=== PATIENT | female | born 1965 | race Caucasian/White ===

== ENCOUNTER 2025-02-10 06:43 | Observation (INO) ==
--- NOTE | 2025-01-14 11:12 | PAT Medication Instructions ---
Medication Instructions Date of Service January 14, 2025 Home Medications Medication Instructions Recorded diclofenac sodium 75 mg 75 mg PO BID PRN pain #60 tabs 12/16/24 tablet,delayed release Medication List: diclofenac sodium 75 mg tablet,delayed release 75 mg PO BID PRN pain famotidine 20 mg tablet 20 mg PO DAILY fexofenadine 180 mg tablet (Xuan Allergy) 180 mg PO DAILY PRN allergies fluvoxamine 150 mg capsule,extended release 24 hr 150 mg PO DAILY levothyroxine 50 mcg tablet 50 mcg PO QAM lifitegrast 5 % eye drops in a dropperette (Xiidra) 1 drp ophthalmic (eye) Q12H PRN Dry Eyes MEDICATION INSTRUCTIONS: Continue as directed lifitegrast 5 % eye drops in a dropperette (Xiidra) 1 drp ophthalmic (eye) Q12H PRN Dry Eyes ASK your surgeon for instructions diclofenac sodium 75 mg tablet,delayed release 75 mg PO BID PRN pain DO NOT take the morning of surgery fexofenadine 180 mg tablet (Xuan Allergy) 180 mg PO DAILY PRN allergies Take morning of surgery With a small sip of water, OTHERWISE NOTHING TO EAT OR DRINK AFTER MIDNIGHT: fluvoxamine 150 mg capsule,extended release 24 hr 150 mg PO DAILY famotidine 20 mg tablet 20 mg PO DAILY levothyroxine 50 mcg tablet 50 mcg PO QAM Other Notes If you have any questions please call us at [phone] or [phone] or [phone] or [phone]
--- NOTE | 2025-01-21 09:03 | Anesthesiology Consultation ---
Date of Service January 21, 2025 Assessment & Plan (1) Encounter for pre-operative examination: Outpatient joint assessment: Patient is currently scheduled for inpatient pathway. If re-evaluated and patient/surgeon requests outpatient pathway, patient is acceptable candidate for outpatient joint program from anesthesia standpoint pending surgeon's office assessment of pt motivation/support/completion of same day joint program preop requirements. Chart Review Chart Review: Acceptable Risk for Surgery and Patient seen in Pre Admission Testing Teaching & Discussion Pre-Anesthesia Teaching/Discussion Notes: Instructed NPO after midnight before surgery, except medications with 15 cc of water. Medication instructions provided according to the PAT guidelines. History Surgery Operation Date: 02/10/25 10:40 Proposed Procedures p Right Total Knee Arthroplasty - Yonathan Castrejon MD Height/Weight Height: 5 ft 7.5 in Weight: 119.2 kg Allergies Allergy/AdvReac Type Severity Reaction Status Date / Time hydrochlorothiazide Allergy Intermediate edema Verified 01/21/25 13:32 triamterene Allergy Intermediate edema Verified 01/21/25 13:32 latex Allergy Mild Skin Verified 01/13/25 10:53 irritation pollen extracts Allergy Mild Verified 01/13/25 10:53 Dust Allergy Mild Uncoded 01/13/25 10:53 Medications Home Medications Medication Instructions Recorded Confirmed Last Taken diclofenac sodium 75 mg 75 mg PO BID PRN pain #60 tabs 12/16/24 01/13/25 Unknown tablet,delayed release famotidine 20 mg tablet 20 mg PO DAILY 01/13/25 01/13/25 Unknown fexofenadine 180 mg tablet 180 mg PO DAILY PRN allergies 01/13/25 01/13/25 Unknown (Xuan Allergy) fluvoxamine 150 mg 150 mg PO DAILY 01/13/25 01/13/25 Unknown capsule,extended release 24 hr levothyroxine 50 mcg tablet 50 mcg PO QAM 01/13/25 01/13/25 Unknown lifitegrast 5 % eye drops in a 1 drp ophthalmic (eye) Q12H PRN 01/13/25 01/13/25 Unknown dropperette (Xiidra) Dry Eyes Past Medical History Medical History (Updated 01/21/25 @ 13:35 by Queta Groves PA-C) Anxiety Cardiac murmur no issues, denies previous echocardiogram-no murmur on last CV exam by S PCP 08/2024 GERD (gastroesophageal reflux disease) controlled, stable per pt History of postoperative nausea and vomiting denies needing scop patch Hypothyroidism OCD (obsessive compulsive disorder) Right knee DJD Seasonal allergies Venous stasis of both lower extremities Patient denies h/o stroke, seizures, heart attack, heart failure, DM, HTN, blood clots/DVTs or blood transfusions. Exercise / Class Metabolic Activity II 4-5 Yardwork/Stairs/Walk up hill (denies chest discomfort or shortness of breath with one flight of stairs) Past Surgical History Surgical History History of mandibular surgery (12/13/85) for tmj Hx of arthroscopic knee surgery x2 on left x2 on right Hx of colonoscopy Hx of hammer toe correction left Past Anesthesia History Other (patient notes no benefit with epidural in past for labor) Adopted, unknown family history. History of PONV History of PONV (denies needing scop patch) and Hx of Motion Sickness Social History Smoking Status: Never smoker Do You Dip or Chew Tobacco: No Hx Alcohol Use: Yes alcohol intake frequency: holidays/special occasions only Hx Substance Use: No substance use type: does not use Review of Systems Snoring, denies witnessed apneas. Patient denies chest pain, shortness of breath, dyspnea on exertion, fever, chills, cough, wheezing, or palpitations. Physical Exam Vital Signs Vitals BP 121/70 P 98 TEMP 98.0 SP02 98% on RA RESP 19 Physical Patient resting comfortably in chair in no acute distress, alert and oriented, responding appropriately throughout visit Full cervical extension range of motion without pain TMD 3.5 finger breadths Mallampati Score 3 Dentition: several chipped teeth, crowns and bridges; denies loose teeth, or implants Lungs: normal respiratory effort. Good air movement, clear throughout to auscultation, no adventitious breath sounds Cardiac: regular rate and rhythm, no murmurs noted Carotid arteries: negative bruit bilat Lab Results Anesthesia Preop Results Results Anesthesia Widget: WBC 6.27 K/ul (4.8-10.8) 01/21/25 Hgb 13.0 g/dl (12.0-16.0) 01/21/25 Hct 41.6 % (37.0-47.0) 01/21/25 Plt 328 K/uL (130-400) 01/21/25 Na 139 mmol/L (136-145) 01/21/25 K 4.3 mmol/L (3.5-5.1) 01/21/25 Cl 104 mmol/L (98-107) 01/21/25 CO2 31 mmol/L (21-32) 01/21/25 BUN 21 mg/dl (6-23) 01/21/25 Creat 0.84 mg/dl (0.6-1.2) 01/21/25 Glucose Level 102 mg/dl (70-99(Fasting)) H 01/21/25 PT 10.3 Seconds (9.0-12.0) 01/21/25 PTT 28 Seconds (21-31) 01/21/25 INR 0.9 (0.9-1.1) 01/21/25 Blood Type O Positive 01/21/25 Antibody Screen NEGATIVE 01/21/25 Testing Electrocardiogram Date: 08/29/24 NSR, rate 82 bpm Possible LA enlargement No significant change vs 09/25/13 EKG Chest X-Ray Date: 01/21/25 No acute cardiopulmonary findings.
--- NOTE | 2025-02-07 17:30 | History & Physical Report ---
Date of Service February 07, 2025 Assessment & Plan (1) Right knee DJD: 59-year-old female with history of knee arthroscopy in the past with advanced medial compartment arthritis of the knee likely due to avascular necrosis. She is failed conservative treatment. She like to have her knee fixed. Plan: We are going to take her to the operating room do a right knee replacement. The risks Mente this procedure explained. Informed consent was obtained. She will plan on stay in the hospital overnight and likely discharge postop day 1. Will use aspirin for DVT prophylaxis. (2) Hypothyroidism: (3) OCD (obsessive compulsive disorder): (4) GERD (gastroesophageal reflux disease): (5) Venous stasis of both lower extremities: History of Present Illness Chief Complaint: . Bilateral knee pain right side greater than left. Primary Care Provider: NO PCP . The patient is a 59-year-old female who presents for definitive treatment of her knees. She has a history of bilateral knee scopes in the past. Over the past several years she has developed increased pain discomfort in both knees the right knee quite a bit more than the left. She has been through conservative treatment. She has had steroid injections which became less successful. She had a Euflexxa injection which made things worse. Pain is mostly medial. She limps more as the day goes on. Is a global pain. She like to have her knee fixed. Once again her right knee bothers him more than the left. Allergies Allergy/AdvReac Type Severity Reaction Status Date / Time hydrochlorothiazide Allergy Intermediate edema Verified 01/21/25 13:32 triamterene Allergy Intermediate edema Verified 01/21/25 13:32 latex Allergy Mild Skin Verified 01/13/25 10:53 irritation pollen extracts Allergy Mild Verified 01/13/25 10:53 Dust Allergy Mild Uncoded 01/13/25 10:53 Home Medications Medication Instructions Recorded Confirmed Type diclofenac sodium 75 mg 75 mg PO BID PRN pain #60 tabs 12/16/24 01/13/25 Rx tablet,delayed release famotidine 20 mg tablet 20 mg PO DAILY 01/13/25 01/13/25 History fexofenadine 180 mg tablet 180 mg PO DAILY PRN allergies 01/13/25 01/13/25 History (Xuan Allergy) fluvoxamine 150 mg 150 mg PO DAILY 01/13/25 01/13/25 History capsule,extended release 24 hr levothyroxine 50 mcg tablet 50 mcg PO QAM 01/13/25 01/13/25 History lifitegrast 5 % eye drops in a 1 drp ophthalmic (eye) Q12H PRN 01/13/25 01/13/25 History dropperette (Xiidra) Dry Eyes Past Med/Surg History Problem List Encounter for pre-operative examination Right knee DJD Medical History Anxiety Cardiac murmur no issues, denies previous echocardiogram-no murmur on last CV exam by S PCP 08/2024 Venous stasis of both lower extremities GERD (gastroesophageal reflux disease) controlled, stable per pt OCD (obsessive compulsive disorder) Hypothyroidism Seasonal allergies History of postoperative nausea and vomiting denies needing scop patch Right knee DJD Surgical History Hx of colonoscopy Hx of hammer toe correction left History of mandibular surgery (12/13/85) for tmj Hx of arthroscopic knee surgery x2 on left x2 on right Social History Smoking Status: Never smoker Second Hand Exposure: No; Do You Dip or Chew Tobacco: No; Tobacco Cessation Education Requested by Patient: No Hx Alcohol Use: Yes Hx Substance Use: No Preferred Language: Cook Islander Communication Ability: Effective Landing Worker Required: No Beliefs That Will Affect Care: None Current Living Situation: Spouse Other Information That Helps Us Care for You: No Feels Safe at Home: Yes Safety Concerns: Feels Safe At This Time Assistive Devices: Denture - Lower Assistive Devices Comment: partial lower Review of Systems All systems reviewed & are unremarkable except as noted in HPI & below. Physical Exam . Physical examination reveals a pleasant middle-aged female. Looks to be in pretty good health. Examination of the right knee reveal patient ambulates which is slightly of a limp. She got moderate soft tissue envelope. She is got varus alignment to her knee. Tender medial joint line. Small knee effusion. Range of motion 0-1 25. No instability. No pain with hip motion. Constitutional WD/WN, vitals as above Neck trachea midline, no thyromegaly Respiratory normal respiratory effort, lungs clear to auscultation Cardiovascular RRR, no murmur, no edema Gastrointestinal (Abdomen) normal bowel sounds, soft, nontender, no hepatosplenomegaly Results & Data Results & Data Laboratory Results . Diagnostic Findings . X-rays of the right knee reviewed. Shows advanced medial compartment arthritis. Looks like she is got a segment of avascular necrosis of the medial femoral condyle. PG Care Time/CCT Total # of Minutes Spent Total Time Spent with Patient: Total time spent is greater than 50% in coordination of care (as documented) at patient's floor/unit and/or counseling patient: Coding Level of Care Code None Diagnoses Right knee DJD M17.11 Hypothyroidism E03.9 OCD (obsessive compulsive disorder) F42.9 GERD (gastroesophageal reflux disease) K21.9 Venous stasis of both lower extremities I87.8
--- NOTE | 2025-02-10 06:44 | History & Physical Bridge Note ---
Date of Service February 10, 2025 History & Physical Bridge Note I have examined the patient, reviewed the History & Physical and in the interval since the performance of the History & Physical I have noted the following changes of clinical significance: no changes noted
[2025-02-10] MEDS ORDERED: BUPIVACAINE 0.5 % 5 MG/1 ML PF 10ML VIAL ONE (07:06)
[2025-02-10] MEDS ORDERED: BUPIVACAINE 0.25% PF 30 ML VIAL ONE (07:06)
[2025-02-10] MEDS ORDERED: fentaNYL citrate PF 100 MCG/2 ML VIAL ONE (07:15)
[2025-02-10] MEDS ORDERED: MIDAZOLAM HCL 1 MG/ML 2ML VIAL ONE ×2 (07:15→09:12)
[2025-02-10] MEDS: dexAMETHasone**PF** 10 MG/ML VIAL IV SCH (07:42)
[2025-02-10] MEDS: METOCLOPRAMIDE HCL 10 MG TABLET PO SCH (07:42)
[2025-02-10] MEDS: CeleBREX 200 MG CAP PO SCH (07:42)
[2025-02-10] MEDS: FAMOTIDINE 20 MG TAB PO SCH (07:42)
[2025-02-10] MEDS: ACETAMINOPHEN 500 MG TAB PO SCH ×2 (07:42→13:33)
[2025-02-10] MEDS: LR 60ML/HR IV SCH (07:47)
[2025-02-10] MEDS: LR 500ML BOLUS, THEN 15ML/HR IV SCH (07:47)
[2025-02-10] MEDS ORDERED: ATROPINE SULFATE 0.1 MG/ML 10ML SYR IV PRN (08:38)
[2025-02-10] MEDS ORDERED: fentaNYL citrate PF 100 MCG/2 ML VIAL IV PRN (08:38)
[2025-02-10] MEDS ORDERED: ONDANSETRON INJ 2 MG/ML 2 ML VIAL IV PRN ×2 (08:38→12:57)
[2025-02-10] MEDS ORDERED: ePHEDrine sulfate 50 MG/ML AMP IV PRN (08:38)
[2025-02-10] MEDS: SCOPOLAMINE 1 MG/72 HR TDSY PATCH TD ONE ×2 (08:42→13:00)
[2025-02-10] MEDS: ALBUTEROL 0.083% NEBU SOLN 3 ML VIAL NEB STA (08:49)
[2025-02-10] MEDS: ceFAZolin 2000MG 2,000 MG/15 ML SYR IV SCH ×2 (09:07→17:16)
[2025-02-10] MEDS ORDERED: KETAMINE HCL 10MG/ML SYR ONE (09:25)
[2025-02-10] MEDS ORDERED: ceFAZolin 330 MG/ML 1 GM VIAL ONE (09:30)
[2025-02-10] MEDS ORDERED: PROPOFOL IV EMULSION 10 MG/ML 20 ML VIAL IV ONE ×2 (09:32→09:59)
[2025-02-10] MEDS ORDERED: ONDANSETRON INJ 2 MG/ML 2 ML VIAL ONE (09:32)
[2025-02-10] MEDS: ORTHO JOINT ANESTHETIC ONE (09:46)
[2025-02-10] MEDS: ROPIV 0.5% 246mg, Ketorolac 30mg, EPINEPHrine 0.5mg in NSS INFIL SCH (09:46)
[2025-02-10] MEDS: TRANEXAMIC ACID 1,000 MG **IV Intra-op IV SCH (10:01)
--- NOTE | 2025-02-10 11:11 | Operative Report ---
PG Post Operative Report Pre & Post Diagnosis Operation Date: 02/10/25 08:50 Pre-Op Diagnosis: Right Knee Degenerative Joint Disease Post-Op Diagnosis: Right Knee Degenerative Joint Disease I identified the patient and participated in the time-out.: Yes Procedure Operation Date: 02/10/25 08:50 Actual Procedures p Right Total Knee Arthroplasty(Right) - Yonathan Castrejon MD Surgeon Yonathan Castrejon MD Tire Balancer Herb Noble PA-C Estimated Blood Loss 50 Findings Consistent with Post-Op Diagnosis Operative findings reveal advanced right knee tricompartment DJD. She had grade 4 disease in all 3 compartments. Moderate-sized joint effusion. Fairly large soft tissue envelope. Specimens Right knee sent for pathology. Anesthesia Type Spinal MAC Complications none Disposition Accompanied Patient To Recovery: No Indications Patient is a 59-year-old female has had a several year history of increasing lateral right knee pain discomfort describes gotten worse over time. She does have a history of a knee arthroscopy in the past. She failed all conservative measures. X-rays show progressive right knee arthritis. She elected proceed with total knee arthroplasty. Description of Procedure Operative implants consist of: 1. Biomet Vanguard size 70 right posterior stabilized femoral component. 2. Biomet size 71 tibial tray. 3. 10 mm posterior stabilized polyethylene insert. 4. 34 x 8-1/2 all poly patella. The patient was taken to the operating room, identified, placed on the operating table in the supine position. All contact areas were appropriately padded. IV antibiotics were provided by the anesthesia team. A spinal anesthetic and adductor canal block had been provided in the holding area. A Montoya catheter was placed in sterile fashion. A right thigh insert was then placed. The right lower extremity was then prepped and draped in usual sterile fashion. The right leg was elevated and exsanguinated with use of a Esmarch bandage. An anterior approach to the right knee was then performed to a longitudinal incision centered over the patella. Sharp dissection was Through subcutaneous tissue down to the extensor mechanism. A medial parapatellar arthrotomy incision was made. Some subperiosteal dissection was carried out medially. The fat pad was resected from Neath patella tendon. The lateral patellofemoral ligament was released. Patella subluxated laterally and the knee was flexed. The osteophytes taken off distal femur. The ACL and PCL were then released from distal femur and the tibia subluxated anteriorly. The external tibial alignment jig was then placed on the anterior face of the tibia and adjusted 14 mm medially. The proximal tibial cut was made remove about 2 mm of bone from most efficient aspect medial tibial plateau. Some osteophytes taken off medially. The tibia sized to a size 71. Attention then drawn the femur. The distal femur examined the sharp drill. Intramedullary canal was suction. A right 5 degree valgus cutting guide was placed. The distal femoral cutting block was pinned in place. This femoral cut was made to take an additional 3 mm of bone off distal femur. The femur was then sized to a size 70. The AP cutting block was pinned parallel to the epicondylar axis which was 3 degrees of external rotation. The anterior cut, anterior chamfer, posterior cut, posterior chamfer cuts were made. The box cutting guide was placed and adjusted slightly lateral and the box cut was made. The knee was flexed. The remnants of the medial and lateral menisci were excised. The osteophytes taken off the posterior aspect the femur. A trial femoral component was placed. The tibial tray was pinned in Margaret external rotation and the drill and stem punch were used. Defect in proximal tibia for the tibial tray. The knee was then trialed and the 10 mm insert fit most appropriately. Attention was then drawn towards the patella. The patella was cleaned of all soft tissue. The patella thickness measured 22 mm in thickness was cut down to 14. Was sized to a size 34 patella. Her patella was fairly large in the medial lateral dimensions. The lateral osteophyte was removed. The lug holes for the patella component were drilled. The patella component was placed. Knee was taken through range of motion patella tracked nicely with no thumbs test. Attention was then drawn to placement permanent components. All trial components were removed. Bone plug was placed in the distal femur limit blood loss. A double batch Palacos G cement was mixed. A Biomet Vanguard size 70 right posterior stabilized femoral component, size 71 tibial tray, a 10 mm posterior stabilized polyethylene insert, and a 34 x 8-1/2 all poly patella then cemented in place. The knee was brought out into full extension till cement hardened. Final cement check was then performed. The pericapsular tissues were injected with total of 100 cc of Ortho mix. The patient did receive 1 g of tranexamic acid. The tourniquet was then let down for final turn time 59 minutes. Hemostasis surges electrocautery. Extensor Meclomen then closed with combination 1 PDS suture and then 1 Vicryl suture in a [id number] fashion. Extensor Meclomen checked found be intact through subcutaneous tissue then closed with 2 Dexon suture in a buried interrupted fashion and the skin was closed skin jeny. Leg was then cleaned and dried a sterile dressing with Xeroform, 4 fours, sterile cast padding, Braulio bandage were applied. Patient then transferred to the recovery room in stable condition. Patient tolerated procedure well and there were no complications. Herb Noble, my physician photographer's assistant, was present for the entire procedure. His assistance was essential and required for appropriate patient positioning, prepping and draping, surgical exposure, performing the technical details of the operation, placement the implants, closure of the wound, and placement of the sterile bandage. I attest to the content of the Intraoperative Record and any orders documented therein. Any exceptions are noted below.
--- NOTE | 2025-02-10 11:33 | XRay Report ---
XR knee RT 1 or 2V routine CLINICAL HISTORY: Postoperative evaluation. COMPARISON: Right knee radiographs July 22, 2024. FINDINGS: Alignment of the total right knee arthroplasty is anatomic. There is no periprosthetic fra cture or lucency. There are skin jeny. No unexpected radiopaque foreign bodies are present. IMPRESSION: Expected findings following total right knee arthroplasty. ACT 112: Negative or not required by law. Electronically signed by: Stanislaw Vides M.D. 02/10/2025 11:32 AM
--- NOTE | 2025-02-10 12:03 | Anesthesiology Progress Note ---
Date of Service February 10, 2025 Anesthesia Post Procedure Vital Signs Vital Signs: Temp Pulse Pulse Resp BP Pulse Ox O2 Del Method 02/10/25 11:50 70 19 138/82 99 Nasal Cannula 02/10/25 11:40 72 17 135/77 95 Nasal Cannula 02/10/25 11:30 36.3 C L 73 15 135/70 96 Room Air 02/10/25 11:20 66 16 127/65 98 Nasal Cannula 02/10/25 11:10 80 18 131/63 97 Nasal Cannula 02/10/25 11:00 79 15 99/68 L 92 Nasal Cannula 02/10/25 10:58 36.1 C L 91 H 20 116/62 93 Nasal Cannula 02/10/25 08:47 97 H 18 98 Room Air 02/10/25 07:21 36.9 C 97 H 20 151/93 H 97 Room Air O2 Flow Rate 02/10/25 11:50 1 02/10/25 11:40 1 02/10/25 11:30 02/10/25 11:20 3 02/10/25 11:10 3 02/10/25 11:00 3 02/10/25 10:58 3 02/10/25 08:47 02/10/25 07:21 Pain Intensity Right Knee: Pain Intensity: 3 Transfer of Care Handoff Completed per policy Notes Mental Status: alert / awake / arousable Patient Amnestic to Procedure: Yes Nausea / Vomiting: adequately controlled Pain: adequately controlled Airway Patency, RR, SpO2: stable & adequate BP & HR: stable & adequate Hydration State: stable & adequate Neuraxial Anesthesia: was administered and sensory block is resolving Anesthetic Complications: no major complications apparent and Pt Satisfied with anesthetic care
[2025-02-10] MEDS ORDERED: bisacodyL 10 MG SUPP PR PRN (12:57)
[2025-02-10] MEDS ORDERED: oxyCODONE HCL IR 5 MG TAB (IMMEDIATE RELEASE) PO PRN (12:57)
[2025-02-10] MEDS ORDERED: MAGNESIUM HYDROXIDE SUSP 30 ML UDC PO PRN (12:57)
[2025-02-10] MEDS ORDERED: HYDROmorphone INJ 0.5 MG/0.5 ML SYR IV PRN (12:57)
[2025-02-10] MEDS ORDERED: NALOXONE HCL 0.4 MG/1 ML VIAL/CARP IV PRN (12:57)
[2025-02-10] MEDS ORDERED: ALUMINUM/MAGNESIUM SUSP 30 ML UDC PO PRN (12:57)
[2025-02-10] MEDS ORDERED: METOCLOPRAMIDE HCL INJ 5 MG/ML 2 ML VIAL IV PRN (12:57)
[2025-02-10] MEDS ORDERED: diphenhydrAMINE Capsule 25 MG CAP PO PRN (12:57)
[2025-02-10] MEDS ORDERED: FEXOFENADINE HCL 180 MG TAB PO PRN (12:57)
[2025-02-10] MEDS ORDERED: ARTIFICIAL TEARS OP PRN (13:17)
[2025-02-10] MEDS: KETOROLAC 30 MG/ML VIAL IV SCH (13:33)
[2025-02-10] MEDS: ASCORBIC ACID 500 MG TAB PO SCH (17:15)
[2025-02-10] MEDS: CHECK SCOPOLAMINE PATCH PLACEMENT SCH (17:15)
[2025-02-10] MEDS: TRANEXAMIC ACID / 0.7% NACL 1,000 MG/100 ML BAG IV SCH (17:23)
[2025-02-10] MEDS: SENNA 8.6 MG TAB PO SCH ×2 (20:21→20:22)
[2025-02-10] MEDS: DOCUSATE SODIUM 100 MG CAP PO SCH (20:22)
[2025-02-10] MEDS: ASPIRIN 81 MG ECTAB PO SCH (20:22)
[2025-02-11] MEDS: LEVOTHYROXINE SODIUM 50 MCG TABLET PO SCH (06:14)
[2025-02-11 06:33] LABS: Hematocrit (blood only) 34.4 % (37.0-47.0); Hemoglobin 10.8 g/dl (12.0-16.0); Mean Corpuscular Hemoglobin 26.7 pg (25.0-34.0); Mean Corpuscular Hgb Conc 31.4 g/dL (32.0-36.0); Mean Corpuscular Volume 84.9 fL (80.0-100.0); Mean Platelet Volume 10.8 fL (9.4-12.4); Platelet Count 295 K/uL (130-400); RDW Coefficient of Variation 13.8 % (11.5-14.5); Red Blood Count 4.05 M/uL (4.20-5.40); White Blood Count 16.47 K/ul (4.8-10.8)
[2025-02-11 07:00] LABS: BUN Creatinine Ratio 23.5 (10-20); Creatinine Clr Calc Pharmacy 84.8 ml/min; Potassium 4.1 mmol/L (3.5-5.1)
[2025-02-11] MEDS: dexAMETHasone 10 MG in SYRINGE 0 ML IV SCH (07:43)
[2025-02-11] MEDS: MULTIVITAMIN TAB PO SCH (07:43)
[2025-02-11] MEDS: FAMOTIDINE 20 MG TAB PO SCH (07:45)
--- NOTE | 2025-02-11 09:07 | Orthopedic Progress Note ---
Date of Service February 11, 2025 Assessment & Plan (1) Status post total right knee replacement: Pain well controlled dvt prophylaxis: teds, scd's and aspirin PT/OT wbat, total knee protocol Dressing change tomorrow at all d/c planning: home with home health today after therapy Subjective . 59 year old patient POD 1 from right tka. Doing well. Not having much knee pain. No other complaints. Review of Systems All systems reviewed & are unremarkable except as noted in HPI & below. Physical Exam .alert and oriented. NAD. VSS Right leg: dressing clean, dry, intact. Able to do straight leg raise, dorsiflex and plantarflex. NVI Results & Data Results & Data Laboratory Results . Diagnostic Findings . PG Care Time/CCT Total # of Minutes Spent Total Time Spent with Patient: Total time spent is greater than 50% in coordination of care (as documented) at patient's floor/unit and/or counseling patient: Coding Level of Care Code 86687 Post Operative Follow-Up Diagnoses Status post total right knee replacement Z96.651
--- NOTE | 2025-02-13 07:48 | Discharge Summary ---
Date of Service February 13, 2025 Admission HPI (Per Admitting) . The patient is a 59-year-old female who presents for definitive treatment of her knees. She has a history of bilateral knee scopes in the past. Over the past several years she has developed increased pain discomfort in both knees the right knee quite a bit more than the left. She has been through conservative treatment. She has had steroid injections which became less successful. She had a Euflexxa injection which made things worse. Pain is mostly medial. She limps more as the day goes on. Is a global pain. She like to have her knee fixed. Once again her right knee bothers him more than the left. Admission Exam (Per Admitting) . Physical examination reveals a pleasant middle-aged female. Looks to be in pretty good health. Examination of the right knee reveal patient ambulates which is slightly of a limp. She got moderate soft tissue envelope. She is got varus alignment to her knee. Tender medial joint line. Small knee effusion. Range of motion 0-1 25. No instability. No pain with hip motion. Principal Diagnosis Same as "Discharge Diagnosis" noted below under Discharge Instructions. Discharge Exam .alert and oriented. NAD. VSS Right leg: dressing clean, dry, intact. Able to do straight leg raise, dorsiflex and plantarflex. NVI Discharge Data Procedures Performed Operation Date: 02/10/25 08:50 Actual Procedures p Right Total Knee Arthroplasty(Right) - Yonathan Castrejon MD Ordered Studies 02/10/25 05:00 US - OR guided needle placemen Routine Hospital Course (1) Status post total right knee replacement: This is a 59 year old patient admitted on 02/10/25 and underwent total knee arthroplasty. She tolerated the procedure well and there were no complications. Transferred to the PACU post op and later to the orthopedic floor for further care. She was given ancef for antibiotic prophylaxis. She was also given LUNA stockings, SCDs, and aspirin for DVT prophylaxis. Hemoglobin, hematocrit, and vital signs were monitored during her hospital stay and remained stable. Did not require any blood transfusions. There were no complications during her hospital stay. By post op day #1 the patient was tolerating a regular diet, pain was reasonably controlled with oral pain medicine, and she was participating in physical education aide apy. On post op day #1 the patient was discharged home and set up with home health care. She was given printed discharge instructions including prescriptions for extra strength tylenol, aspirin, cefadroxil, ketorolac, zofran, senokot, and oxycodone. Continue physical therapy, weight bearing as tolerated. Continue LUNA stockings. Follow up approximately 2 weeks post op or sooner if there are problems or concerns. Discharge Plan Discharge Items Patient Disposition: Home - Home Health Services Reason For Visit: Right Knee Osteoarthritis Discharge Diagnosis: Right Knee Replacement Activity: Per Instructions section Weightbearing: Full weightbearing Non-emergency contact: Surgeon Call non-emergency contact if: you have any medication questions Follow-up/Referrals: Tenzin Alba MD [Primary Care Provider] - Diet: Regular Addtl Attending Provider Instructions: ACTIVITY RECOMMENDATIONS: Diet: * You may resume previous diet. Physical Therapy: * You will go to physical therapy three times each week for four to six weeks after your surgery in order to regain your knee range of motion and to retrain your knee to work properly. * It is just as important to make sure you are getting your knee perfectly straight as it is to regain your knee bend. * Taking a pain pill an hour before therapy can help you have a more productive and comfortable therapy session. Home Exercise: * You were shown a series of exercises (heel props, heel slides, etc.) in the hospital. Do these exercises three to four times each day including the exercises you were shown in physical therapy. Walking: * Get up and walk several times each day. For the first four weeks, try not to stand or walk for more than one hour at a time. If you do stand or walk for more than one hour, you will not hurt anything, but your knee and leg will likely swell. * As you feel comfortable, you may change from the walker or crutches to a cane and then to independent walking. MEDICATIONS: New Medicine: * You will likely be taking one or more of these medications: 1. Oxycodone - A quick and shorter-acting pain medication. Take one to two tablets every six hours to lessen your pain. 2. Aspirin - Thins your blood to lessen the chance of forming a blood clot. * The most common side effects of pain medicine and iron are nausea and constipation. If nausea or constipation is too much of a problem or if you have any questions about your new medicines or doses, call [facility] at . We will try to help you manage these issues. "VERY IMPORTANT TO READ AND REVIEW" Pain: * The immediate post-operative period after knee replacement surgery is often quite painful. * You are given a prescription for pain medicine. You should take it, as directed, when you need it, especially before physical therapy and before going to bed. Pain that interferes with sleep is very common and can last several months. * You will likely need pain medicine for the first four to six weeks. It will not stop all of the pain. The pain will lessen and as you feel better, you may change to milder pain medicine such as Tylenol. * The most common side effects of pain medicine are nausea and constipation, so don't take more than you need. SPECIAL CARE INSTRUCTIONS: TEDs/Elastic Stockings: * The white elastic stockings help limit swelling and prevent blood clots from forming in your legs. The more you wear them, the more they work. * Wear them for six weeks after knee replacement surgery and four weeks after partial knee replacement. Incision Site Care: * Remove dressing postoperative day 2 and then shower. Keep direct shower pressure off the incision site. * After showering, cover jeny with dry gauze and change daily or more frequently if the dressing is getting saturated with drainage. * Use the LUNA stockings to hold dressing in place. DO NOT apply tape on the skin. * May completely stop using bandage if wound is dry and no drainage * Malcom are removed between 2 and 3 weeks post-op. If your follow-up appointment is made before 2 weeks, please have your appointment re- scheduled. It is too early to remove the jeny. Prevention of Infection: * Take antibiotics one hour before any dental cleaning, dental work, urological procedure, gastrointestinal procedure or any invasive surgery in order to prevent your new joint from getting infected. * You may get the antibiotics from the doctor performing the procedure or you may call our office at [phone] before and we will call in a prescription to the pharmacy of your choice. Things to Watch For: * Drainage from the incision site that occurs more than one week after your surgery. * Severely increased knee/leg pain or swelling. * Increased redness at the incision site. * Fever above 102 degrees Fahrenheit. * Unusual chest pain or shortness of breath. * Unusual pain or burning with urination. Call [facility] at [phone] with any of the above problems or if you have any questions about your medicines or recovery. FOLLOW UP VISIT: Make an appointment to see your doctor for approximately two weeks after surgery for a progress check and staple removal by calling the office at [phone]. Pending Studies at Discharge: No Stand-Alone Forms: My [facility], Smoking Cessation Medications and DC Order Prescriptions: Continued oxycodone 5 mg tablet 5 - 10 mg PO Q8H PRN (Reason: pain) Qty: 40 0RF Rx Instructions: Take as needed for pain. Do not take more than 6 tablets per day ondansetron 4 mg tablet,disintegrating 4 mg PO Q8 PRN (Reason: nausea) Qty: 20 1RF Rx Instructions: Take as needed for nausea sennosides [Senokot] 8.6 mg tablet 8.6 mg PO BID 14 Days Qty: 28 0RF Rx Instructions: Take two times a day to prevent/treat constipation acetaminophen [Tylenol Extra Strength] 500 mg tablet 1,000 mg PO TID 30 Days Qty: 180 0RF Rx Instructions: Take 3 times per day to lessen pain. aspirin [Maggie Low Dose Aspirin] 81 mg tablet,delayed release (DR/EC) 81 mg PO BID 45 Days Qty: 90 0RF Rx Instructions: Take to prevent blood clots. cefadroxil 500 mg capsule 500 mg PO BID 7 Days Qty: 14 0RF Rx Instructions: Take 1 cap twice a day to prevent infection fexofenadine [Xuan Allergy] 180 mg Tablet 180 mg PO DAILY PRN (Reason: allergies) famotidine 20 mg Tablet 20 mg PO DAILY levothyroxine 50 mcg Tablet 50 mcg PO QAM fluvoxamine 150 mg Capsule,Extended Release 24hr 150 mg PO DAILY Xiidra 5 % Dropperette 1 drp OPHTHALMIC (EYE) Q12H PRN (Reason: Dry Eyes) Discontinued diclofenac sodium 75 mg tablet,delayed release (DR/EC) 75 mg PO BID PRN (Reason: pain) Qty: 60 1RF Rx Instructions: Take with food Krames/Other Patient Handouts: DVT Post Op Prevention Admission Data Admit Date/Time: 02/10/25 11:01 Attending Provider: Yonathan Castrejon Admit Provider: Yonathan Castrejon Primary Care Provider: Tenzin Alba Other Providers: [facility] Other Interventions: Discharge Summary Assessment (RN) Last Done: 02/11/25 09:23
== END 2025-02-11 10:12 | disposition home health service (06) ==
LOC: ASU 06:43 → 3E 06:43
DX: Z79.82 Long term (current) use of aspirin; Z01.818 Encounter for other preprocedural examination; Z79.891 Long term (current) use of opiate analgesic; Z91.040 Latex allergy status; K21.9 Gastro-esophageal reflux disease without esophagitis; Z01.812 Encounter for preprocedural laboratory examination; Z88.8 Allergy status to other drugs, medicaments and biological substances; M17.11 Unilateral primary osteoarthritis, right knee; I87.8 Other specified disorders of veins; F42.9 Obsessive-compulsive disorder, unspecified; Z98.890 Other specified postprocedural states; Z79.899 Other long term (current) drug therapy; Z96.651 Presence of right artificial knee joint; D68.59 Other primary thrombophilia; Z79.890 Hormone replacement therapy; K74.60 Unspecified cirrhosis of liver; E03.9 Hypothyroidism, unspecified